=== PATIENT | female | born 1955 | race Caucasian/White ===

== ENCOUNTER 2017-07-30 09:06 | Day surgery (SDC) | payer BC ==
[~2017-07-30] VITALS: Ht 160 cm; Wt 94.8 kg
[~2017-07-30 09:06] MED LIST: ALPRAZOLAM0.25 M2 PO; CELEBREX200 MG PO; FISH OIL 1,0001 EAC7 PO; ITRACONAZOLE100 MG PO; SKELAXIN400 M1 PO; VERAPAMIL HCL120 M2 PO; VITAMIN B12 100MCG PO; VITAMIN D32000 UNI1 PO
[2017-07-30 09:59] VITALS: BP 142/65
[2017-07-30] MEDS ORDERED: NORCO 5/3251 TABLET PO (11:30)
[2017-07-30 12:03] VITALS: BP 155/70
[2017-07-30 13:05] VITALS: BP 152/68
== END 2017-07-30 13:20 | disposition home or self-care (01) ==
LOC: SDC 09:06
PROC: 0JB80ZZ Excision of Abdomen Subcutaneous Tissue and Fascia, Open Approach (ICD-10-PCS; principal; 2017-07-30)
DX: D17.1 Benign lipomatous neoplasm of skin and subcutaneous tissue of trunk (principal); F41.9 Anxiety disorder, unspecified; E78.00 Pure hypercholesterolemia, unspecified; E55.9 Vitamin D deficiency, unspecified
CPT/HCPCS: 88304; J0690; J2250; J3010; Q0175